=== PATIENT | male | born 2005 | race Hispanic/Latino ===

== ENCOUNTER 2025-02-14 14:12 | Emergency (ER) | payer SELFPAY ==
[2025-02-14 15:29] LABS: Absolute Lymphocytes (CBC) 2.0 K/uL (0.7-4.9); Hematocrit 40.8 % (39.6-49.0); Hemoglobin 13.9 g/dL (13.6-17.9); MCH 29.5 pg (27.0-35.0); MCHC 34.0 g/dL (32.0-36.0); MCV 86.8 fL (80-100); MPV 8.3 fL (7.6-11.3); Nucleated RBC Absolute Count 0.0 (0-0); Nucleated Red Blood Cells % 0.1 % (0-0); RBC Red Blood Cell Count 4.70 M/uL (4.33-5.43); White Blood Count 6.20 thou/uL (4.3-10.9)
--- NOTE | 2025-02-14 15:43 | RAD REPORT ---
EXAM: Soft Tissue Neck W/Contr INDICATION: right neck swelling and pain Sagittal and coronal reformations were generated. This exam was performed according to our department al dose-optimization program, which includes automated exposure control, adjustment of the mA and/or kV according to patient size and/or use of iterative reconstruction technique. IV contrast was administered. COMPARISON: None. FINDINGS: Mucosal spaces: Nasopharynx, oropharynx, oral cavity, larynx and hypopharynx are normal. No suspiciou s masses are identified. Epiglottis is normal in configuration. True vocal cords cords are normally situated. Piriform sinuses are well-aerated. Lymph Nodes: Several prominent lymph nodes are seen in the neck bilaterally, slightly greater on the right involving the jugular chain as well as posterior triangle on the right. The largest measuring 18 mm in the right posterior triangle and 17 mm right jugular chain superiorly. Salivary Glands: Unremarkable. Thyroid Gland: Normal Included Intracranial Structures: Grossly unremarkable. Included Orbits: Normal Paranasal Sinuses: Predominantly clear Tympanomastoid Cavities: Normal Vascular Structures: Normal Osseous Structures: No acute osseous abnormality. Included Lung Apices: Normal IMPRESSION: Enlarged lymph nodes are present in the neck, greater on the right, as detailed suggesting cervical l ymphadenitis. Follow-up imaging is recommended after appropriate therapy to ensure resolution.
[2025-02-14 15:51] LABS: Anion Gap 5.3 mEq/L (5.0-15.0); BUN Blood Urea Nitrogen 11.0 mg/dL (7-18); Glucose Level 71.0 mg/dL (74-106); Potassium 4.3 mEq/L (3.5-5.1)
--- NOTE | 2025-02-14 16:04 | EDPHYS ---
Physician Documentation [facility] Name: Yaron Brock Jr Age: 19 yrs Sex: Male : 2005 Arrival Date: 02/14/2025 Time: 14:12 Bed 9 Private MD: ED Physician Jay Christian HPI: 02/14 16:01 This 19 yrs old Male presents to ER via Ambulatory with complaints of Bump on rn Neck. 16:01 Patient reports 3 to 4 days of right sided neck pain and subjective swelling. No rn injury. Reports pain when moving neck [id number]. No fever or chills. No trouble swallowing or breathing. Patient states has history in family with leukemia. Historical: - Allergies: 14:34 NKDA; me1 - PMHx: 14:34 None; me1 - PSHx: 14:34 None; me1 - Immunization history:: Adult Immunizations up to date. - Infectious Disease History:: Denies. - Social history:: Smoking status: Reported history of juuling and/or vaping. - Family history:: not pertinent. - Hospitalizations: : No recent hospitalization is reported. ROS: 16:01 Constitutional: Negative for fever, chills, and weight loss, Neck: Positive for right rn neck pain and swelling Cardiovascular: Negative for chest pain, palpitations, and edema, Respiratory: Negative for shortness of breath, cough, wheezing, and pleuritic chest pain, Exam: 16:01 Constitutional: This is a well developed, well nourished patient who is awake, alert, rn and in no acute distress. Neck: Trachea midline, mild bilateral cervical lymphadenitis present worse on the right. No significant swelling Cardiovascular: Regular rate and rhythm. No pulse deficits. Respiratory: No increased work of breathing, no retractions or nasal flaring. Vital Signs: 14:31 BP 116 / 70; Pulse 78; Resp 17; Temp 98.3; Pulse Ox 100% ; Weight 99.79 kg; Height 5 me1 ft. 11 in. ; Pain 0/10; 15:15 BP 110 / 80; Pulse 68; Resp 17; Pulse Ox 100% on R/A; nh2 16:13 BP 114 / 75; Pulse 82; Resp 18; Temp 98(O); Pulse Ox 100% on R/A; nh2 14:31 Body Mass Index 30.68 (99.79 kg, 180.34 cm) me1 14:31 Pain Scale: Adult me1 MDM: 14:18 Medical Screening Exam initiated rn 16:01 Differential diagnosis: Cervical lymphadenitis, leukemia, lymphoma. Data reviewed: rn vital signs, nurses notes, lab test result(s), radiologic studies, CT scan, and as a result, I will discharge patient. Counseling: I had a detailed discussion with the patient and/or guardian regarding the historical points, exam findings, and any diagnostic results supporting the discharge/admit diagnosis, lab results, radiology results, the need for outpatient follow up, to return to the emergency department if symptoms worsen or persist or if there are any questions or concerns that arise at home. Special discussion: I discussed with the patient/guardian in detail that at this point there is no indication for admission to the hospital. It is understood, however, that if the symptoms persist or worsen the patient needs to return immediately for re-evaluation. Based on the history and exam findings, there is no indication for further emergent testing or inpatient evaluation. I discussed with the patient/guardian the need to see the primary care provider for further evaluation of the symptoms. 02/14 14:43 Order name: CBC with Diff; Complete Time: 15:51 rn 02/14 14:43 Order name: Basic Metabolic Panel; Complete Time: 16:00 rn 02/14 14:43 Order name: CT Soft Tissue Neck W/contr; Complete Time: 15:51 rn 02/14 14:43 Order name: IV Start; Complete Time: 15:20 rn Administered Medications: No medications were administered Disposition Summary: 02/14/25 16:04 Discharge Ordered Notes: Location: Home rn Problem: new rn Symptoms: have improved rn Condition: Stable rn Diagnosis - Acute lymphadenitis of face, head and neck rn Followup: rn - With: Eliane Ramos MD - When: As needed - Reason: Recheck today's complaints, Re-evaluation by your physician Discharge Instructions: - Discharge Summary Sheet rn - Lymphadenopathy rn Forms: - Medication Reconciliation Form rn - Antibiotic labor delivery rn - Prescription Opioid Use rn - Patient Portal Instructions rn - Leadership Thank You Letter rn - Work release form nh2 Prescriptions: - Clindamycin HCl 300 mg Oral Capsule - take 1 capsule ORAL route every 6 hours for 10 days; 40 capsule; Refills: 0, rn Product Selection Permitted Signatures: Dispatcher [employer] EDMS Jay Christian MD MD rn Marjan Talavera RN RN me1 Corrections: (The following items were deleted from the chart) 14:44 CBC+H.LAB.BRZ ordered. EDMS EDMS 14:44 BASIC METABOLIC PANEL+C.LAB.BRZ ordered. EDMS EDMS
--- NOTE | 2025-02-14 16:04 | ER ---
Nurse's Notes [facility] Name: Yaron Brock Jr Age: 19 yrs Sex: Male : 2005 Arrival Date: 02/14/2025 Time: 14:12 Bed 9 Private MD: Diagnosis: Acute lymphadenitis of face, head and neck Presentation: 02/14 14:31 Chief complaint: Patient states: c/o bump to right neck that he noticed 4 days ago. me1 Denies recent illness. Causes pain when he turns his neck. Coronavirus screen: At this time, the client does not indicate any symptoms associated with coronavirus-19. Ebola Screen: No symptoms or risks identified at this time. Initial Sepsis Screen: Does the patient meet any 2 criteria? No. Patient's initial sepsis screen is negative. Does the patient have a suspected source of infection? No. Patient's initial sepsis screen is negative. Risk Assessment: Do you want to hurt yourself or someone else? Patient reports no desire to harm self or others. Onset of symptoms was February 10, 2025. 14:31 Method Of Arrival: Ambulatory [facility] [place] 14:31 Acuity: DEDRA 3 me1 Historical: - Allergies: 14:34 NKDA; me1 - PMHx: 14:34 None; me1 - PSHx: 14:34 None; me1 - Immunization history:: Adult Immunizations up to date. - Infectious Disease History:: Denies. - Social history:: Smoking status: Reported history of juuling and/or vaping. - Family history:: not pertinent. - Hospitalizations: : No recent hospitalization is reported. Screenin:22 [facility] ED Fall Risk Assessment (Adult) History of falling in the last 3 months, nh2 including since admission No falls in past 3 months (0 pts) Confusion or Disorientation No (0 pts) Intoxicated or Sedated No (0 pts) Impaired Gait No (0 pts) Mobility Assist Device Used No (0 pt) Altered Elimination No (0 pt) Score/Fall Risk Level 0 - 2 = Low Risk Oriented to surroundings, Maintained a safe environment, Educated pt \T\ family on fall prevention, incl call for assistance when getting out of bed, Assessed \T\ reinforced patient's understanding of fall precautions. Abuse screen: Denies threats or abuse. Denies injuries from another. Nutritional screening: No deficits noted. Tuberculosis screening: No symptoms or risk factors identified. Assessment: 14:45 General: Appears in no apparent distress. Behavior is calm, cooperative, appropriate nh2 for age, Denies fever, feeling ill, fatigue. Pain: Complains of pain in R side of neck Pain does not radiate. Pain currently is 0 out of 10 on a pain scale. at worst was 2 out of 10 on a pain scale. Quality of pain is described as aching, Pain began 4 days ago Is intermittent, Aggravated by repositioning. Neuro: Level of Consciousness is awake, alert, obeys commands, Oriented to person, place, time, situation, Appropriate for age Denies weakness dizziness, headache. Cardiovascular: Denies chest pain, Patient's skin is warm and dry. Respiratory: Airway is patent Trachea midline Respiratory effort is even, unlabored, Respiratory pattern is regular, symmetrical, Denies cough, shortness of breath. GI: No signs and/or symptoms were reported involving the gastrointestinal system. Patient currently denies nausea, vomiting. : No signs and/or symptoms were reported regarding the genitourinary system. Denies burning with urination. EENT: No signs and/or symptoms were reported regarding the EENT system. Derm: Skin is intact, is healthy with good turgor, Skin is pink, warm \T\ dry. Musculoskeletal: Circulation, motion, and sensation intact. Range of motion: intact in all extremities. 15:20 Reassessment: pt transferred to MD via wheelchair. nh2 16:14 Reassessment: Patient and/or family updated on plan of care and expected duration. Pain nh2 level reassessed. Patient is alert, oriented x 3, equal unlabored respirations, skin warm/dry/pink. Patient denies pain at this time. Vital Signs: 14:31 BP 116 / 70; Pulse 78; Resp 17; Temp 98.3; Pulse Ox 100% ; Weight 99.79 kg; Height 5 me1 ft. 11 in. ; Pain 0/10; 15:15 BP 110 / 80; Pulse 68; Resp 17; Pulse Ox 100% on R/A; nh2 16:13 BP 114 / 75; Pulse 82; Resp 18; Temp 98(O); Pulse Ox 100% on R/A; nh2 14:31 Body Mass Index 30.68 (99.79 kg, 180.34 cm) me1 14:31 Pain Scale: Adult me1 ED Course: 14:16 Patient arrived in ED. cj3 14:18 Jay Christian MD is Attending Physician. rn 14:34 Triage completed. me1 14:34 Arm band placed on Patient placed in waiting room. EKG completed in triage. Results me1 shown to MD. 14:47 Ashley Meyer, RN is Primary Nurse. aa5 15:15 Inserted saline lock: 22 gauge in right antecubital area, using aseptic technique. nh2 Blood collected. Flushed with 10 mL NS. 15:18 Romero Barrios Jr, RN is Primary Nurse. nh2 15:20 CBC with Diff Sent. nh2 15:20 Basic Metabolic Panel Sent. nh2 15:22 Patient has correct armband on for positive identification. Allergy band placed. Call nh2 light in reach. Side rails up X 1. Provided Education on: using call light for assistance. 15:26 CT Soft Tissue Neck W/contr In Process Unspecified. EDMS 16:04 Eliane Ramos MD is Referral Physician. rn 16:20 No provider procedures requiring assistance completed. IV discontinued, intact, nh2 bleeding controlled, No redness/swelling at site. Pressure dressing applied. Administered Medications: No medications were administered Medication: 15:23 VIS not applicable for this client. nh2 Outcome: 16:04 Discharge ordered by MD. rn 16:20 Discharged to home ambulatory, nh2 16:20 Condition: stable 16:20 Discharge instructions given to patient, Instructed on discharge instructions, follow up and referral plans. medication usage, Demonstrated understanding of instructions, follow-up care, medications, Prescriptions given X 1, 16:20 Patient left the ED. nh2 Signatures: Dispatcher [employer] EDSD Jay Christian MD MD rn Calderon, Audri, RN RN aa5 Marjan Talavera RN RN me1 Romero Barrios Jr, RN RN nh2 Bridget Wynne cj3 Corrections: (The following items were deleted from the chart) 15:23 15:22 Inserted saline lock: 22 gauge in right antecubital area, using aseptic nh2 technique. Blood collected. Flushed with 10 mL NS nh2
[2025-02-14 16:37] VITALS: BP 114/75; TEMP 98; O2SAT 100
== END 2025-02-14 16:20 | disposition home or self-care (01) ==
LOC: ER 14:12
DX: L04.0 Acute lymphadenitis of face, head and neck (principal); Z80.6 Family history of leukemia
CPT/HCPCS: 36415; 70491; 80048; 85025; 99284; Q9967